=== PATIENT | female | born 1965 | race Caucasian/White ===

== ENCOUNTER 2022-06-17 09:26 | Outpatient (CLI) | payer BC, SELFPAY ==
--- NOTE | 2022-06-17 09:15 | MR_ITS ---
[facility] [address] [facility] [address] Phone:?[phone] Fax:?[phone] Referring Physician Information: Greg Harris M.D. [address] [place] [id number] Phone:?[phone] Fax:?[phone] Patient:Enmanuel Romero D.O.B:?1965 Sex:?Female Phone:?[phone] [facility] MRN:?[id number] Exam Date:?06/17/2022 ? EXAM: MRI of the LEFT HAND, without contrast CLINICAL INFORMATION: Female, 56 years old, with left thumb pain in the setting of a 1st CMC joint arthroplasty. INDICATION: Evaluate digital radial nerve. PRIOR SURGERY: None reported. PLAIN FILMS: None available. COMPARISONS: No prior MRIs available. TECHNICAL INFORMATION: Using a 1.5T MR scanner and a localizing surface coil: coronals: T1, PD, T2, STIR sagittals: T1, PD, T2, STIR axials: PD, T2, PDFS SEDATION: None. CONTRAST: None. FINDINGS: Osseous structures of the left hand included are unremarkable without stress/occult fractures, bone marrow edema or osseous mass. Status post 1st CMC joint arthroplasty, with trapeziectomy and a surgical anchor in the 1st metacarpal base. The visualized joints throughout the left hand are otherwise unremarkable, without pathologic narrowing. Volar to the 1st proximal phalanx and deep to the flexor tendons of the 1st digit, there is a STIR hyperintense, T1 isointense region of soft tissue thickening/mass measuring 1.4 x 0.6 x 1.1 cm (sagittal STIR series 16 image 4 and axial PDFS series 10 image 22). There is no soft tissue lesion in the region of the digital nerves or immediately adjacent to the skin marker placed by the patient. Collateral capsuloligamentous structures of the joints appear intact. Flexor and extensor tendons are intact, without rupture, tendinopathy, tenosynovitis or longitudinal splitting. Musculature of the hand appears unremarkable without masses, rupture or strain. IMPRESSION: 1. Nonspecific soft tissue mass/thickening along the volar aspect of the 1st proximal phalanx, deep to the flexor tendons measuring 1.4 x 0.6 x 1.1 cm. Further evaluation with percutaneous tissue sampling is recommended. 2. No soft tissue mass/lesion adjacent along the course of the digital nerves or adjacent to the skin marker placed by the patient. 3. Status post 1st CMC arthroplasty with trapeziectomy. 4. Small 1st IP joint effusion. 5. No fracture or osseous stress reaction. BC Electronically signed on 06/17/2022 1:35:00 PM by Raj Paulino M.D.
== END 2022-06-17 09:27 | disposition home or self-care (01) ==
LOC: MRI 09:26
PROVIDERS: PCP Family Medicine; Visit Provider Orthopaedic Surgery
DX: M79.645 Pain in left finger(s) (principal); R22.32 Localized swelling, mass and lump, left upper limb; M25.442 Effusion, left hand
CPT/HCPCS: 73218

== ENCOUNTER 2022-07-02 10:32 | Outpatient (CLI) | payer BC, SELFPAY ==
--- NOTE | 2022-07-02 10:45 | CRLHL7_ITS ---
For Patients: As a result of the Cures Act, medical imaging exams and procedure reports are released immediately into your electronic medical record. You may view this report before your referring provider. If you have questions, please contact your health care provider. DIGITAL DIAGNOSTIC LEFT MAMMMOGRAM USING TOMOSYNTHESIS AND COMPUTER-AIDED DETECTION INDICATION: Follow-up focal asymmetry LEFT breast retroareolar region. TECHNIQUE: Spot compression view LEFT breast in the CC and MLO projection. A true ML view was obtained. Digital breast tomosynthesis utilized. Computer-aided detection utilized. COMPARISON: 06/19/2022. FINDINGS: Breast Composition: There are scattered areas of fibroglandular density. The previous identified retroareolar density on 06/19/2022 within the LEFT breast is superimposed parenchymal elements. No underlying mass. No architecture distortion. No suspicious microcalcifications. Ultrasound is not recommended at this time. Annual mammography is recommended. These findings were discussed briefly with the patient. IMPRESSION: Negative additional views of the LEFT breast. Annual mammography recommended. BI-RADS Category 1: Negative A lay language report of this examination will be provided to the patient. Dictated by: Elio Christian MD @07/02/2022 12:00:37 PM hebert/Dictated by: Elio Christian MD @ 07/02/2022 12:00:00 PM (Electronically Signed)
== END 2022-07-02 10:33 | disposition home or self-care (01) ==
LOC: MAMMO 10:32
PROVIDERS: PCP Family Medicine; Visit Provider Family Medicine
DX: R92.8 Other abnormal and inconclusive findings on diagnostic imaging of breast (principal)
CPT/HCPCS: 77065; G0279

== ENCOUNTER 2024-03-25 09:06 | Outpatient (CLI) | payer OTHER, SELFPAY ==
--- NOTE | 2024-03-25 09:15 | MR_ITS ---
[address] [address] Phone:?[phone] Fax:?[phone] Referring Physician Information: Greg Harris M.D. [address] [facility] [address] Phone:?[phone] Fax:?[phone] Patient:Enmanuel Romero D.O.B:?1965 Sex:?Female Phone:?[phone] [facility] MRN:?[id number] Exam Date:?03/25/2024 EXAM: MRI of the LEFT KNEE, without contrast CLINICAL: Left knee pain. Evaluate for lateral meniscal tear. COMPARISONS: X-rays dated 03/16/2024. TECHNICAL: Multiplanar multisequence MRI of the left knee was obtained. SEDATION: None. CONTRAST: None. FINDINGS: Ligaments: ACL: Intact and unremarkable. PCL: Intact and unremarkable. MCL: Intact and unremarkable. LCL: Intact and unremarkable. Posterolateral corner: Popliteus, biceps femoris, iliotibial band, and the popliteofibular ligament appear intact. Posteromedial corner: Semimembranosus, pes anserine tendons and posterior oblique ligament appear intact. Extensor mechanism: Patellar tendon: Intact, without tendinopathy. Quadriceps tendon: Intact, without tendinopathy. Retinacula: Medial and lateral retinacula are intact. Fat pads: Unremarkable infrapatellar Hoffa's, quadriceps and prefemoral fat pads. Patellofemoral joint: Patella: There is full-thickness chondral loss involving the medial patellar facet extending into the patellar median ridge as seen on axial series 4 images 9-10. Focal chondral fissure involving the patellar median ridge on axial series 4 image 11. Trochlea: Small segment of grade 2-3 chondral loss and deep chondral fissuring involves the inferior trochlea on sagittal series 6 image 14 with trace underlying subchondral reactive edema. Medial compartment: Medial meniscus: No evidence of discrete meniscal tear or meniscal displacement. Medial cartilage: No significant chondromalacia. Lateral compartment: Lateral meniscus: No evidence of discrete meniscal tear or meniscal displacement. Lateral cartilage: There is mild heterogeneity of the lateral tibial plateau cartilage with deep chondral fissuring seen to involve the posterior lateral tibial plateau adjacent to the posterior horn lateral meniscus on sagittal series 6 image 20. Lateral femoral condyle cartilage is preserved. Knee joint: Effusion: Small left knee effusion. Intra-articular bodies:?No convincing bodies identified. Popliteal cyst: None. Bones: No suspicious bone marrow signal alteration or fracture line. There is scattered edema involving the subcutaneous soft tissues of the knee, nonspecific. IMPRESSION: 1. No evidence of meniscal tear, ligamentous injury or fracture. 2. Patellofemoral chondromalacia/chondral loss as above. Deep chondral fissuring also involves the posterior lateral tibial plateau. 3. Small joint effusion. JCZ Electronically signed on 03/25/2024 11:56:00 AM by Bobby Chambers D.O.
== END 2024-03-25 09:07 | disposition home or self-care (01) ==
LOC: MRI 09:07
PROVIDERS: PCP Family Medicine; Visit Provider Orthopaedic Surgery
DX: M25.562 Pain in left knee (principal); M22.42 Chondromalacia patellae, left knee; M25.462 Effusion, left knee
CPT/HCPCS: 73721

== ENCOUNTER 2024-04-21 07:13 | Outpatient (CLI) | payer OTHER, SELFPAY ==
--- NOTE | 2024-04-21 07:15 | MR_ITS ---
[address] [address] Phone:?[phone] Fax:?[phone] Referring Physician Information: Greg Harris M.D. [address] [facility] [address] Phone:?[phone] Fax:?[phone] Patient:Enmanuel Romero D.O.B:?1965 Sex:?Female Phone:?[phone] [facility] MRN:?[id number] Exam Date:?04/21/2024 EXAM: MRI of the LEFT THUMB, without contrast CLINICAL: Female, 58 years old, with left thumb pain, swelling and mass/lump. INDICATION: Evaluate thumb mass. PRIOR SURGERY: Reported history of bilateral thumbs surgery. PLAIN FILMS: 06/09/2022 radiographic series of the left thumb. COMPARISONS: No prior MRIs available. 06/17/2022 MRI of the left hand. TECHNICAL: Using a 1.5T MR scanner and a localizing surface coil: 3.0 mm?coronals: T1, PD, T2, STIR 3.0 mm?sagittals: PD, T2 3.0 mm?axials: PD, T2, PDFS Spatial resolution and detail is limited on this exam. SEDATION: None. CONTRAST: None. IMPRESSION: 1. No significant change in the size or appearance of approximately 12 x 10 x 3 mm soft tissue mass volar to the distal aspect of the thumb proximal phalanx, nonspecific although certainly including the differential diagnosis of giant cell tumor of tendon sheath. 2. 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 FINDINGS: Evidence of postoperative changes of the base of the thumb in keeping with residua of trapezium resection. A tunnel in the base of the thumb metacarpal is keeping with associated stabilization surgery. There does not seem to be significant soft tissue interposition between the base of the thumb metacarpal which is approximately located adjacent to the distal margin of the distal pole scaphoid. No significant adjacent bone marrow edema at this articulation. There is again the appearance of soft tissue thickening volar to the mid to distal aspect of the thumb proximal phalanx measuring approximately 12 x 10 x 3 mm in greatest mediolateral, longitudinal and anteroposterior dimensions, respectively (sagittal PD series 9, image 19; coronal T1 series 8, image 7; axial PD & PDFS series 4 & 5, images 15 & 16). No evidence for involvement of the underlying bony phalanx MR appearance of the soft tissue is nonspecific, although location with certainty based the possibility of that which could reflect giant cell tumor of tendon sheath (tenosynovial giant cell tumor). This mass appears unchanged for nearly 2 years since the prior 06/17/2022 MRI exam. Osseous structures of the thumb are otherwise unremarkable, without stress/occult fractures, marrow edema or mass. Joints of the thumb are unremarkable, without narrowing or effusion. The ulnar collateral ligament of the thumb MCP joint is intact, without sprain, disruption or Stener lesion. The radial collateral ligament of the thumb MCP joint is intact, without sprain or disruption. Flexor and extensor tendons are intact, without rupture, tendinopathy or tenosynovitis. HMF Electronically signed on 04/22/2024 10:05:00 AM by Eran Tucker M.D.
== END 2024-04-21 07:14 | disposition home or self-care (01) ==
LOC: MRI 07:13
PROVIDERS: PCP Family Medicine; Visit Provider Orthopaedic Surgery
DX: R22.32 Localized swelling, mass and lump, left upper limb (principal); M19.042 Primary osteoarthritis, left hand
CPT/HCPCS: 73218

== ENCOUNTER 2024-05-12 10:13 | Day surgery (SDC) | payer OTHER, SELFPAY ==
[2024-05-12] VITALS (17 sets, daily range): BP systolic 139–195; BP diastolic 86–104; PULSE 76–112; RESP 15–16; TEMP 36.4; O2SAT 98–100
[2024-05-12] MEDS: LIDOCAINE 1%-EPI 1:100,000 20 ML INFILTRATI (10:20)
[2024-05-12] MEDS: BUPIVACAINE 0.25% 30 ML INJECTION (12:45)
--- NOTE | 2024-05-12 13:27 | P.ORPRC_ITS ---
Procedure Note Date of procedure: 05/12/24 Procedure: Preop diagnosis: Left thumb volar soft tissue mass Postop diagnosis: Left thumb volar soft tissue mass Procedure: Left thumb thumb soft tissue mass excisional biopsy Anesthesia: Local Surgeon: Greg Harris MD cardiovascular physician assistant: WANDA Pitts EBL: 2 mL Complications: None Specimens: Sent for gross and microscopic pathology labeled left thumb soft tissue mass Drains: None Preoperative antibiotics: None Indications: The patient has a history of left thumb painful soft tissue mass. Excisional biopsy was recommended. The risks, benefits alternatives and expected outcomes were discussed in detail. These included but were not limited to: Infection, bleeding, injury to blood vessel or nerve, venous thromboembolism. All questions were answered to their satisfaction. The patient was placed supine on the operating room table. Local anesthesia was established with 0.5% Marcaine with epinephrine and 2% lidocaine with epinephrine. The hand was prepped and draped in usual sterile fashion. A Rohini incision was made over the volar aspect of the proximal phalanx of the thumb. Subcutaneous dissection was taken with with the tenotomy scissors to the flexor tendons. The radial digital nerve was encountered and was carefully retracted and protected throughout the case. The mass appeared to be just deep to the radial digital nerve, at the level of the A2 lorenza radially. We divided the A2 lorenza longitudinally. The flexor tendons were retracted out of the way and deep dissection was taken with scalpel to expose the mass. The mass was well encapsulated and not invading any of the local soft tissues. It was not a solid soft tissue mass, yet not a cyst. It did not appear to be adherent to radial digital nerve, yet found just deep to it. It appeared to have a thin exterior lining. 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 The rice bodies were sent for gross and microscopic pathology labeled left thumb soft tissue mass. The mass did not appear to emanate from the IP joint. The cortex of the proximal phalanx appears normal. The wound was irrigated with normal saline. The A2 lorenza was repaired with a 4-0 Vicryl [id number] suture x2. Skin was closed with interrupted 4-0 nylon sutures. A dry dressing was applied the tourniquet was released. Sponge and needle counts were correct x 2. The patient tolerated the procedure well, there were no apparent complications. They were sent to same day surgery in satisfactory condition. Plan: Unlimited extension as tolerates, gentle active flexion as tolerates. Discontinue the intraoperative dressing on postoperative day 3 and may get the wound wet as tolerates. Follow up in the office in 2 weeks for a wound check and suture removal and final pathology.
== END 2024-05-12 13:56 | disposition home or self-care (01) ==
LOC: OR 10:14
PROVIDERS: PCP Family Medicine; Visit Provider Orthopaedic Surgery
PROC: (CPT 26115; principal; 2024-05-12 11:45)
DX: R22.32 Localized swelling, mass and lump, left upper limb (principal)
CPT/HCPCS: 26115; 88305; J0665

== ENCOUNTER 2024-09-12 14:45 | Outpatient (RCR) | payer OTHER, SELFPAY | END 2025-01-10 23:59 | disposition home or self-care (01) | PROVIDERS: PCP Family Medicine; Visit Provider Podiatrist Primary Podiatric Medicine | DX: M19.071 Primary osteoarthritis, right ankle and foot (principal); S92.901K Unspecified fracture of right foot, subsequent encounter for fracture with nonunion; M96.0 Pseudarthrosis after fusion or arthrodesis; Z51.89 Encounter for other specified aftercare | CPT/HCPCS: 97110; 97162 ==

== ENCOUNTER 2025-03-27 09:00 | Outpatient (RCR) | payer OTHER, SELFPAY | END 2025-07-25 23:59 | disposition home or self-care (01) | PROVIDERS: PCP Family Medicine; Visit Provider Podiatrist Primary Podiatric Medicine | DX: Z48.89 Encounter for other specified surgical aftercare (principal); T81.30XA Disruption of wound, unspecified, initial encounter; Z51.89 Encounter for other specified aftercare | CPT/HCPCS: 97110; 97112; 97161 ==